=== PATIENT | female | born 1985 | race Caucasian/White ===

== ENCOUNTER 2016-07-11 23:30 | Emergency (ER) | payer SELFPAY ==
[~2016-07-11] VITALS: Ht 170.2 cm; Wt 76.4 kg
[2016-07-11] MEDS ORDERED: TRAM50TA4 PO (23:39)
[2016-07-11] MEDS ORDERED: OMEP20 PO (23:39)
[2016-07-11] MEDS ORDERED: MEDR4 PO (23:39)
[2016-07-11 23:44] VITALS: BP 115/70
[2016-07-12] MEDS ORDERED: ONDANSETRON HCL 4 MG TABLET PO ONE (00:15)
[2016-07-12] MEDS ORDERED: FentaNYL CITRATE-PF 100 MCG/2 ML VIAL IM ONE (00:15)
[2016-07-12] MEDS ORDERED: MEPERIDINE-PF 25 MG/ML SYRINGE IM ONE (00:15)
== END 2016-07-12 01:31 | disposition left against medical advice (07) ==
LOC: EMS 23:32
DX: M54.30 Sciatica, unspecified side (principal); M25.561 Pain in right knee; M25.522 Pain in left elbow; K21.9 Gastro-esophageal reflux disease without esophagitis; Z88.5 Allergy status to narcotic agent; Z88.6 Allergy status to analgesic agent
CPT/HCPCS: 99282; Q0162; J2175; J3010